=== PATIENT | female | born 1945 | race Caucasian/White ===

== ENCOUNTER 2018-11-13 21:38 | Emergency (ER) | payer MEDICARE ==
[~2018-11-13] VITALS: Ht 165.1 cm; Wt 68.0 kg
[2018-11-13] MEDS ORDERED: JANUVIA50 MG PO (22:58)
[2018-11-13] MEDS ORDERED: LISINOPRIL20 MG PO (22:58)
[2018-11-13] MEDS ORDERED: AMLODIPINE2.5 MG PO (22:58)
[2018-11-13] MEDS ORDERED: KLS OMEPRAZ20 MG PO (22:59)
[2018-11-13] MEDS ORDERED: TRULICITY0.75 MG/0. IM (23:01)
[2018-11-13] MEDS ORDERED: CALCIUM600 M1 PO (23:02)
[2018-11-13] MEDS ORDERED: ASPIRIN81 MG PO (23:03)
[2018-11-14 01:10] LABS: URINE BILIRUBIN - DIPSTICK NEGATIVE (NEGATIVE); URINE BLOOD DIPSTICK NEGATIVE (NEGATIVE); URINE COLOR YELLOW; URINE GLUCOSE - DIPSTICK 100 mg/dL (NEGATIVE); URINE KETONE TRACE mg/dL (NEGATIVE); URINE LEUK ESTERASE TRACE (NEGATIVE); URINE NITRITE - DIPSTICK NEGATIVE (Negative); URINE PROTEIN - DIPSTICK TRACE mg/dL (NEG-TRACE); URINE SPECIFIC GRAVITY 1.015; URINE UROBILINOGEN - DIPSTICK 0.2 E.U./dL (0.2)
[2018-11-14 01:11] LABS: HEMATOCRIT 39.5 % (37.0-47.0); IMMATURE GRANULOCYTES 0.8 % (0.0-5.0); MEAN CELL VOLUME 93.4 fL CALC (80.0-100.0); MEAN CORPUSCULAR HGB 30.7 pG CALC (26.0-32.0); MEAN CORPUSCULAR HGB CONC 32.9 g/L CALC (32.0-36.0); NEUT# 12.93 thou/uL (2.00-7.15); RED BLOOD COUNT 4.23 mill/uL (4.20-5.60); RED CELL DISTRI WIDTH 12.8 % (11.5-15.5)
[2018-11-14 01:24] LABS: BILIRUBIN, TOTAL 0.4 mg/dL (0.0-1.4); CREATININE 1.2 mg/dL (0.5-1.0); POTASSIUM 4.4 mmol/l (3.5-5.1); TOTAL PROTEIN 6.8 g/dL (6.3-8.2)
[2018-11-14 01:28] LABS: ACT PARTIAL THROMBO TIME 26.8 SECONDS (20.0-32.5); PROTHROMBIN TIME 10.2 SECONDS (9.0-12.5)
[2018-11-14 03:12] VITALS: BP 139/75
== END 2018-11-14 03:09 | disposition short-term general hospital (02) ==
LOC: ED 21:38
PROVIDERS: Emergency Medicine
PROC: 0T9B70Z Drainage of Bladder with Drainage Device, Via Natural or Artificial Opening (ICD-10-PCS; principal; 2018-11-14)
DX: S72.011A Unspecified intracapsular fracture of right femur, initial encounter for closed fracture (principal); T82.868A Thrombosis due to vascular prosthetic devices, implants and grafts, initial encounter; M79.652 Pain in left thigh; X58.XXXA Exposure to other specified factors, initial encounter; Y92.009 Unspecified place in unspecified non-institutional (private) residence as the place of occurrence of the external cause

== ENCOUNTER 2022-04-25 12:44 | Emergency (ER) | payer MEDICARE ==
[~2022-04-25] VITALS: Ht 165.1 cm; Wt 62.2 kg
[2022-04-25] VITALS (18 sets, daily range): BP systolic 138–165; BP diastolic 56–129
[~2022-04-25 12:44] MED LIST: AMLODIPINE2.5 MG PO; ASPIRIN81 MG PO; CALCIUM600 M1 PO; JANUVIA50 MG PO; KLS OMEPRAZ20 MG PO; LISINOPRIL20 MG PO; TRULICITY0.75 MG/0. IM
[2022-04-25 13:06] LABS: HEMATOCRIT 39.7 % (37.0-47.0); HEMOGLOBIN 12.9 g/dl (12.0-16.0); IMMATURE GRANULOCYTES 0.7 % (0.0-5.0); MEAN CELL VOLUME 92.8 fL CALC (80.0-100.0); MEAN CORPUSCULAR HGB 30.1 pG CALC (26.0-32.0); MEAN CORPUSCULAR HGB CONC 32.5 g/dL CAL (32.0-36.0); NEUT# 12.31 thou/uL (2.00-7.15); RED BLOOD COUNT 4.28 mill/uL (4.20-5.60); RED CELL DISTRI WIDTH 12.9 % (11.5-15.5)
[2022-04-25 13:23] LABS: ALBUMIN 4.4 g/dL (3.2-5.0); BILIRUBIN, TOTAL 0.5 mg/dL (0.0-1.4); CREATININE 1.2 mg/dL (0.5-1.0); POTASSIUM 4.1 mmol/l (3.5-5.1); TOTAL PROTEIN 8.1 g/dL (6.3-8.2)
[2022-04-25] MEDS ORDERED: PANTOPRAZOLE SO40 M1 PO (14:24)
== END 2022-04-25 19:01 | disposition short-term general hospital (02) ==
LOC: ED 12:44
PROVIDERS: Family Medicine
DX: S72.002A Fracture of unspecified part of neck of left femur, initial encounter for closed fracture (principal); I10 Essential (primary) hypertension; E11.9 Type 2 diabetes mellitus without complications; W01.0XXA Fall on same level from slipping, tripping and stumbling without subsequent striking against object, initial encounter; Y92.009 Unspecified place in unspecified non-institutional (private) residence as the place of occurrence of the external cause; Z79.899 Other long term (current) drug therapy